=== PATIENT | male | born 1970 ===

== ENCOUNTER 2019-08-03 17:00 | Outpatient (AMBR) | payer OTHER, SELFPAY ==
--- NOTE | 2019-07-13 08:21 | PTNOTE_ITS ---
PT OP Initial Eval Patient Information Visit Reasons: low back paint Medical Diagnosis: M51.37 Treatment Dx #1: LBP Start of Care: 07/13/19 Date of Onset: 5-6 yrs ago Initial Assessment Subjective Pt is 49 yr old slovak speaking male who c/o LBP and points to the belt line. He is able to work but has some days of pain that keep him from working. Increased pain with lifting, bending and lying face down. Pain level is 4/10 today and he denies radiation into the LE's. He has times of inflammation on the side and he points to the R flank. PMH: none reported Imaging: Xray report in the chart Pt goal: to not have as many severe pain episodes and lessen the LBP Objective Trunk ArOM: Extension: 30% with pain along beltline Flexion: 10 from floor with neural tension in B posterior LE's B SB 18 with pain B rotation: 40% B SLR ROM: 80 deg with posterior neural tension LE strength: B hamstrings: 4-/5 Quads 4/5 Hip abd/add 4/5 [place]'s: negative TTP: B PSIS L>R lumbar paraspinal atrophy Sensation: intact B feet Assessment Pt presents with trunk ROM limitations and LBP with radiation to the LE's that limits squatting and bending tolerance. Pt has neural tension along sciatic pathway and diminished sensation of L LE and foot compared to R. These findings are consistent with referring Dx of lumbar DDD at L5-S1. Pt was taught HEP and given materials. [employer] Goals 1. Ind with HEP 2. Improved B quad and hamstring strength to 4/5 3. Pt will improve trunk FB to 7 from floor 4. Decreased muscle spasm and TTP of lumbar paraspinals from mod to min Treatment Plan 1. Manual therapy 2. Therex 3. Modalities as indicated , estim, moist heat, ice, mechanical traction Frequency and Duration 2x a week for 6 weeks Certification Dates: 07/13/19 to 10/12/19 Office Procedures PT Procedures PT Date of Service: 07/13/19 OP PT Eval Mod Complex 30 minutes: Yes
--- NOTE | 2019-07-15 18:26 | PT.ODAYNRPT ---
PT Outpatient Daily Note Date of Service: July 15, 2019 OP Daily Note Visit Reasons: low back paint Outpatient Physical Therapy Treatment Date: 07/15/19 Subjective: Same as time of eval Objective: See f/S for therex Mech traction L/S x7' at 20 lbs Assessment: Good response to prone progression and traction to reduce tissue irritability Plan: Continue per POc Length of Time (minutes) of Treatment: 30 Minutes Office Procedures PT Procedures PT Date of Service: 07/13/19 OP PT Eval Mod Complex 30 minutes: Yes PT Procedures PT Date of Service: 07/15/19 Therapeutic Exercise 30 minutes: Yes
--- NOTE | 2019-07-19 18:40 | PT.ODAYNRPT ---
PT Outpatient Daily Note Date of Service: July 19, 2019 OP Daily Note Visit Reasons: low back paint Outpatient Physical Therapy Treatment Date: 07/19/19 Subjective: A little less LBP since last visit Objective: See f/S for therex Mech traction L/S x7' at 20 lbs Assessment: Good response to prone progression and traction to reduce tissue irritability Plan: Continue per POc Length of Time (minutes) of Treatment: 30 Minutes Office Procedures PT Procedures PT Date of Service: 07/19/19 Therapeutic Exercise 30 minutes: Yes PT Procedures PT Date of Service: 07/13/19 OP PT Eval Mod Complex 30 minutes: Yes PT Procedures PT Date of Service: 07/15/19 Therapeutic Exercise 30 minutes: Yes
--- NOTE | 2019-08-03 18:17 | PTNOTE_ITS ---
PT OP Progress/Discharge Note Date of Service: August 03, 2019 Progress Note/DC Note Progress Note/Discharge Note: DC Note Patient Information Visit Reasons: low back paint Treatment Dx #1: LBP Service Continue Service or Discharge: Discharge Discharge Date: 08/03/19 Status Subjective: Pt wants to stop therapy to save the rest for if he needs them this year. Temporary relief from therapy visits. Increased LBP after sitting for >30' Objective: See F/S for therex MT: STM L/S paraspinals x15' with [place] Objective findings same as time of evaluation. Assessment: Pt has attended the eval and 3 Rx sessions with fair progress with therapy goals. He hasn't attended enough to make long-term changes but was taught HEP of prone progression which should relieve discogenic LBP. He has what feels like lipoma on the L side L/S that is TTP. Plan: Self-D/C Office Procedures PT Procedures PT Date of Service: 07/19/19 Therapeutic Exercise 30 minutes: Yes PT Procedures PT Date of Service: 07/13/19 OP PT Eval Mod Complex 30 minutes: Yes PT Procedures PT Date of Service: 07/15/19 Therapeutic Exercise 30 minutes: Yes PT Procedures PT Date of Service: 08/03/19 Therapeutic Exercise 15 minutes: Yes Manual Undergraduate Internship 15 minutes: Yes
== END 2019-08-06 23:59 | disposition home or self-care (01) ==
PROVIDERS: PCP Family Medicine; Referring Provider Family Medicine; Visit Provider Physician Assistant Medical
DX: M51.37 Other intervertebral disc degeneration, lumbosacral region (principal); G89.29 Other chronic pain; M54.5 Low back pain
CPT/HCPCS: 97110; 97140; 97162